=== PATIENT | female | born 1995 | race African-American/Black ===

== ENCOUNTER 2020-01-26 16:44 | Emergency (ER) | payer BC, SELFPAY ==
--- NOTE | ~2020-01-26 | CT_ITS ---
EXAMINATION: CT abdomen pelvis w con INDICATION: Left lower quadrant pain TECHNIQUE: Computed tomographic images of the abdomen and pelvis were obtained after the administrati on of 100 cc of Omnipaque 350 intravenous contrast. The dose-length product (DLP) was 835.84 mGy-cm. Automated exposure control and iterative reconstruction technique were employed. COMPARISON: None available FINDINGS: Respiratory motion artifact limits evaluation of the lung bases which appear clear. The hea rt size is normal. Surgical changes in the stomach are likely related to gastric bypass. The liver, s pleen, pancreas, gallbladder, and adrenal glands are normal. The kidneys are unremarkable. A circumao rtic left renal vein is noted. No pathologically enlarged abdominal or pelvic lymph nodes are identif ied. The appendix is normal. There is no free intraperitoneal gas or evidence of bowel obstruction. T he visualized osseous structures are unremarkable. IMPRESSION: 1. No CT correlate for the patient's symptoms. Reviewed, dictated and finalized at location A.
[2020-01-26 17:27] VITALS: BP 146/100; PULSE 95; RESP 16; TEMP 36.8; O2SAT 100
[2020-01-26 17:41] LABS: Basophils Absolute Auto 0.1 K/mm3 (0.0-0.1); Eosinophils Percent Auto 0.8 % (0-4.4); Hematocrit 40.1 % (37.0-47.0); Hemoglobin 12.8 g/dL (12.0-15.0); Immature Granulocyte Absolute 0.01 K/mm3 (0.00-0.031); Immature Granulocyte Percent A 0.2 % (0-0.5); Lymphocytes Absolute Auto 2.61 K/mm3 (0.9-3.2); Lymphocytes Percent Auto 50.9 % (18.3-44.2); Mean Corpuscular HGB Conc 31.9 g/dl (32-36); Mean Corpuscular Hemoglobin 23.3 pg (26-34); Mean Platelet Volume 8.8 fl (7.4-10.4); Monocytes Absolute Auto 0.3 K/mm3 (0.1-0.6); Monocytes Percent Auto 6.6 % (2.6-8.5); Neutrophils Absolute Auto 2.1 K/mm3 (1.3-6.7); Neutrophils Percent Auto 40.5 % (45.5-73.1); Platelet Count Result 251 k/mm3 (150-375); Red Blood Count 5.49 M/mm3 (4.2-5.4); Red Cell Distribution Width 15.7 % (11.5-14.5); White Blood Count 5.1 K/mm3 (4.5-10.0)
[2020-01-26 17:55] LABS: Hypochromasia 1+ (NORMAL); Platelet Estimate Adequate (Adequate)
[2020-01-26 17:56] LABS: Anisocytosis 2+ (NORMAL)
[2020-01-26 17:57] LABS: Add Urine Microscopic? YES; Appearance Urine Clear (Clear); Bilirubin Urine Negative (Negative); Blood Urine Negative (Negative); Color Urine Yellow (Yellow); Glucose Urine UA Negative (Negative); Ketones Urine 1+ mg/dL (Negative); Leukocyte Esterase Ur Negative LEU/UL (Negative); Mucus Urine Heavy /lpf; Nitrate Urine Negative (Negative); Protein Urine 1+ mg/dL (Negative); RBC Urine 0-2 /hpf (0-2); Specific Grav Ur 1.023 (1.001-1.035); Squamous Epithelial Cell Urine Occasional /hpf (Few); WBC Urine 0-3 /hpf
[2020-01-26 17:58] LABS: Alanine Aminotransferase 58 U/L (4-35); Albumin Level 4.4 g/dL (3.5-5.1); Alkaline Phosphatase 100 U/L (38-126); Aspartate Amino Transferase 53 U/L (14-36); Bilirubin,Total 0.7 mg/dL (0.2-1.3); Blood Urea Nitrogen 5 mg/dL (7-17); Calcium 9.2 mg/dL (8.4-10.2); Carbon Dioxide 26 mmol/L (22-30); Chloride 103 mmol/L (98-107); Estimated CRCL calculation 113 ml/min; Estimated Glomerular Filt Rate > 60; Glucose 86 mg/dL (65-105); Lipase 158 U/L (23-300); Potassium 4.1 mmol/L (3.4-5.0); Sodium 138 mmol/L (137-145)
--- NOTE | 2020-01-26 19:43 | ED.GENADULT ---
HPI - General Adult General Chief complaint: Nausea/Vomiting/Diarrhea Stated complaint: VOMITING, MCMILLAN, DEHYDRATION, ABD PAIN Time Seen by Provider: 01/26/20 19:42 Source: patient Mode of arrival: ambulatory Limitations: no limitations History of Present Illness HPI narrative: 24-year-old female patient presents to the emergency department with complaints of nausea, vomiting, diarrhea and abdominal pain that started last night. Patient states that she has history of gastric bypass sleeve in 2017. Patient states that she was on Saxenda for appetite suppressant that was prescribed by her doctor and she went off of it for about a week and recently got her prescription refilled. Patient states that she started taking it last night and then developed nausea, vomiting, diarrhea and some left lower abdominal pain. Patient denies . Patient states her last period was January 15. Patient denies any fevers that she is aware of. Patient states that she lives alone and not currently working. Patient states she has not been around anybody that is sick that she is aware of. Patient states that she last vomited about 5 minutes ago and has not been able to keep anything down today. Related Data Allergies Allergy/AdvReac Type Severity Reaction Status Date / Time No Known Allergies Allergy Verified 01/26/20 19:58 Review of Systems Review of Systems: Narrative: CONSTITUTIONAL: Denies fever, chills, or sweats. EYES: Denies visual changes, redness, or discharge. ENT: Denies rhinorrhea, congestion, sore throat, or otalgia. CARDIOVASCULAR: Denies chest pain, palpitations, or edema. RESPIRATORY: Denies cough or dyspnea. GASTROINTESTINAL: Positive abdominal pain, nausea, vomiting, and diarrhea. GENITOURINARY: Denies dysuria or hematuria. SKIN: Denies rash or itching. MUSCULOSKELETAL: Denies back pain, joint pain, or myalgia. NEUROLOGIC: Denies headache, numbness, or weakness. PSYCHIATRIC: Denies anxiety or depression. [facility] Surgical History Surgical History (Updated 01/26/20 @ 19:59 by MARSHA Adames) H/O gastric bypass 2017 Comments At the time of my signature I agree with nursing past medical history, surgical, social, and family history. There is no relevant family history pertinent to the presenting complaint. Exam Narrative: Exam Narrative: GENERAL: Well-appearing, well-nourished, and in no acute distress. HEAD: Normocephalic, atraumatic. EYES: PERRLA and EOMI. ENT: Nares clear, no rhinorrhea or epistaxis. Mucous membranes moist. NECK: Supple. No lymphadenopathy CHEST: Clear to auscultation. No respiratory distress. HEART: Regular rate and rhythm. No murmur heard. Normal peripheral pulses. ABDOMEN: Soft, flat, nondistended. No guarding, rebound tenderness, or rigid. Patient has tenderness to the left lower quadrant on palpation. No pulsatilla masses. Bowel sounds present in all four quadrants. No organomegaly. Negative Wetzel?s sign. No periumbicial tenderness. No Supra public tenderness or distension. Good femoral pulses bilaterally. No hernia noted. No scars or surface trauma. EXTREMITIES: Normal range of motion. No edema. SKIN: Warm, dry, no rash. NEURO: No focal deficits. Alert and oriented x3. Course Reevaluation(s) Reevaluation #1: Reevaluated patient after her labs and CT abdomen had resulted. Patient states she is feeling much better no longer has any pain and no nausea or vomiting. Discussed with her that there is no evidence of any acute issues to her CT. Discussed with her that her labs overall look well as well as her urine. Discussed with her that this could be some type of little virus that is causing her symptoms or possibly side effects of her medication. Discussed with patient daughter plan of care is to discharge her home with Zofran, Pepcid and dicyclomine. Discussed with patient if she continues to have issues with the nausea vomiting and diarrhea she will need to follow-up with her primary doctor. Patient
--- NOTE | 2020-01-26 19:54 | ECG_ITS ---
Measurements Intervals [place] Rate: 108 P: 53 WI: 169 QRS: 48 QRSD: 79 T: 24 QT: 331 QTc: 445 Interpretive Statements SINUS TACHYCARDIA BORDERLINE T WAVE ABNORMALITY- ANT/INF LEADS BASELINE ARTIFACT- I, III ABNORMAL ECG Electronically Signed On 01-27-2020 6:50:47 CDT by Joce Soto D.O.
[2020-01-26] MEDS: SODIUM CHLORIDE 0.9% IV 1,000 ML 999 ML IV CONT (20:00)
[2020-01-26] MEDS: ONDANSETRON INJ 4 MG/2 ML VIAL IV PUSH (20:00)
[2020-01-26 20:06] VITALS: BP 152/89; PULSE 98; RESP 14; TEMP 37.2; O2SAT 100
[2020-01-26 20:35] VITALS: TEMP 37.2
[2020-01-26 21:57] VITALS: BP 147/92; PULSE 93; RESP 14; TEMP 36.9; O2SAT 99
== END 2020-01-26 21:59 | disposition home or self-care (01) ==
PROVIDERS: Emergency Medicine; Emergency Provider Nurse Practitioner Family
DX: K52.9 Noninfective gastroenteritis and colitis, unspecified (principal); Z98.84 Bariatric surgery status; R00.0 Tachycardia, unspecified; R94.31 Abnormal electrocardiogram [ECG] [EKG]; R03.0 Elevated blood-pressure reading, without diagnosis of hypertension
CPT/HCPCS: 36415; 74177; 80053; 81001; 81025; 83690; 85025; 93005; 96361; 96374; 96375; 99284; J0131; J2405; J7030; Q9967

== ENCOUNTER 2020-01-27 16:10 | Emergency (ER) | payer BC, SELFPAY ==
[2020-01-27 16:19] VITALS: BP 149/91; PULSE 99; RESP 19; TEMP 36.2; O2SAT 99
[2020-01-27] MEDS: SODIUM CHLORIDE 0.9% IV 1,000 ML 999 ML IV CONT (17:40)
[2020-01-27] MEDS: ONDANSETRON INJ 4 MG/2 ML VIAL IV PUSH (17:42)
[2020-01-27] MEDS: FAMOTIDINE 20 MG/2 ML VIAL IV PUSH (17:42)
--- NOTE | 2020-01-27 17:42 | ED.NAVMDI ---
HPI - Nausea/Vomiting/Diarrhea General Chief complaint: Nausea/Vomiting/Diarrhea <Prashanth Jackson PA-C - Last Filed: 01/27/20 18:40> Stated complaint: n/v, headache <Prashanth Jackson PA-C - Last Filed: 01/27/20 18:40> Time Seen by Provider: 01/27/20 16:56 <Prashanth Jackson PA-C - Last Filed: 01/27/20 18:40> Source: patient and old records reviewed <Prashanth Jackson PA-C - Last Filed: 01/27/20 18:40> Mode of arrival: ambulatory <Prashanth Jackson PA-C - Last Filed: 01/27/20 18:40> Limitations: no limitations <Prashanth Jackson PA-C - Last Filed: 01/27/20 18:40> History of Present Illness HPI Narrative: Patient is a 24-year-old female who presents for concern for dehydration patient was seen yesterday for nausea vomiting diarrhea notes that she has not filled the medications that were prescribed to her continues to have some loose stools but notes that her nausea vomiting abdominal pain have improved patient on arrival is in the room in no distress notes some minimal discomfort in the frontal forehead denies fever chills nausea vomiting <Prashanth Jackson PA-C - Last Filed: 01/27/20 18:40> Related Data Allergies/Adverse reactions: Allergies Allergy/AdvReac Type Severity Reaction Status Date / Time No Known Allergies Allergy Verified 01/26/20 19:58 <Prashanth Jackson PA-C - Last Filed: 01/27/20 18:40> Review of Systems Review of Systems: All systems reviewed & are unremarkable except as noted in HPI and below <Prashanth Jackson PA-C - Last Filed: 01/27/20 18:40> [facility] Surgical History Surgical History: Surgical History H/O gastric bypass 2017 <AVELINA Steward Last Filed: 01/27/20 18:40> Social History Social History: Social History Gender identity (if verbalized by the patient): Female <AVELINA Steward Last Filed: 01/27/20 18:40> Exam Narrative: Exam Narrative: GENERAL: Well-appearing, well-nourished, and in no acute distress. HEAD: Normocephalic, atraumatic. EYES: PERRLA and EOMI. ENT: Nares clear, no rhinorrhea or epistaxis. Mucous membranes moist. CHEST: Clear to auscultation. No respiratory distress. No wheezes rales or rhonchi HEART: Regular rate and rhythm. No murmur heard. Normal peripheral pulses. ABDOMEN: Soft, nontender, nondistended EXTREMITIES: Normal range of motion. No edema. SKIN: Warm, dry, no rash. NEURO: No focal deficits. Alert and oriented x3. Cranial nerves II through XII grossly intact PSYCH: Normal mood and affect. <AVELINA Steward Last Filed: 01/27/20 18:40> Course Course Emergency Course: Patient in the room in no distress aware of case findings treatment plan and diagnosis agreeing to follow-up as directed no high risk changes in the blood work was hydrated in the emergency department and this felt appropriate for outpatient reevaluation provided with reasons to return <Prashanth Jackson PA-C - Last Filed: 01/27/20 18:40> Vital Signs Vital signs: Vital Signs Temperature 97.2 F L 01/27/20 16:19 Pulse Rate 99 01/27/20 16:19 Respiratory Rate 01/27/20 16:19 Blood Pressure 149/91 H 01/27/20 16:19 Pulse Oximetry 99 01/27/20 16:19 Temperature 97.2 F L 01/27/20 16:19 Pulse Rate 88 01/27/20 19:22 Respiratory Rate 01/27/20 19:22 Blood Pressure 162/84 H 01/27/20 19:22 Pulse Oximetry 100 01/27/20 19:22 <AVELINA Steward Last Filed: 01/27/20 18:40> Vital Signs Temperature 97.2 F L 01/27/20 16:19 Pulse Rate 99 01/27/20 16:19 Respiratory Rate 01/27/20 16:19 Blood Pressure 149/91 H 01/27/20 16:19 Pulse Oximetry 99 01/27/20 16:19 Temperature 97.2 F L 01/27/20 16:19 Pulse Rate 88 01/27/20 19:22 Respiratory Rate 20 01/27/20 19:22 Blood Pressure 162/84 H 01/27/20 19:22 Pulse Oximetry 10
[2020-01-27 17:43] LABS: Hematocrit 39.1 % (37.0-47.0); Hemoglobin 12.2 g/dL (12.0-15.0); Immature Platelet Fraction Pct 1.2 % (0.9-11.2); Mean Corpuscular HGB Conc 31.2 g/dl (32-36); Mean Corpuscular Hemoglobin 23.3 pg (26-34); Mean Corpuscular Volume 74.8 fl (80-100); Mean Platelet Volume 9.2 fl (7.4-10.4); Platelet Count Result 244 k/mm3 (150-375); Red Blood Count 5.23 M/mm3 (4.2-5.4); Red Cell Distribution Width 15.8 % (11.5-14.5); White Blood Count 5.3 K/mm3 (4.5-10.0)
[2020-01-27 17:53] LABS: Alanine Aminotransferase 75 U/L (4-35); Albumin Level 4.1 g/dL (3.5-5.1); Alkaline Phosphatase 92 U/L (38-126); Aspartate Amino Transferase 78 U/L (14-36); Bilirubin,Total 0.7 mg/dL (0.2-1.3); Blood Urea Nitrogen 5 mg/dL (7-17); Calcium 8.5 mg/dL (8.4-10.2); Carbon Dioxide 24 mmol/L (22-30); Chloride 103 mmol/L (98-107); Estimated CRCL calculation 130 ml/min; Estimated Glomerular Filt Rate > 60; Glucose 74 mg/dL (65-105); Lipase 141 U/L (23-300); Potassium 3.6 mmol/L (3.4-5.0); Sodium 136 mmol/L (137-145)
[2020-01-27 18:01] LABS: Atypical Lymphocytes Present; Lymphocytes Absolute Manual 3.28 K/mm3 (1.1-4.5); Lymphocytes Percent Manual 62 % (18-44); Monocytes Absolute Manual 0.37 K/mm3 (0.1-0.90); Monocytes Percent Manual 7 % (3-9); Neutrophils Percent Manual 31 % (46-73); Platelet Estimate Adequate (Adequate); Total Cells Counted 100
[2020-01-27 18:15] VITALS: BP 127/81; PULSE 82; RESP 13; O2SAT 97
[2020-01-27 19:22] VITALS: BP 162/84; PULSE 88; RESP 20; O2SAT 100
== END 2020-01-27 19:24 | disposition home or self-care (01) ==
PROVIDERS: Emergency Medicine Emergency Medical Services; Emergency Provider General Practice
DX: R10.9 Unspecified abdominal pain (principal)
CPT/HCPCS: 36415; 80053; 83690; 85025; 85055; 96365; 96375; 99284; J0131; J2405; J7030

== ENCOUNTER → 2020-09-25 11:29 | Outpatient (CLI) | payer BC, SELFPAY ==
--- NOTE | ~2020-09-25 | US_ITS ---
EXAMINATION: US transvaginal DATE: 09/25/2020 11:59 INDICATION: Menorrhagia TECHNIQUE: Multiple endovaginal sonographic images of the pelvis were obtained. COMPARISON: None. FINDINGS: The uterus measures 5.3 x 4 x 3.8 cm. The endometrial complex measures 6 mm. There is a tin y volume of fluid in the endometrial canal. The right ovary measures 1.5 x 2.3 x 1.3 cm. The left ova ry measures 2.7 x 1.6 x 2.3 cm. There is normal vascular flow in the ovaries. There is no free fluid in the pelvis. IMPRESSION: 1. No sonographic correlate for the patient's symptoms. Trace amount of fluid in the endometrial meseret l which is likely physiologic assuming the patient is not . Reviewed, dictated and finalized at location A. AUDIT MANAGER IMPRESSION: 1. No sonographic correlate for the patient's symptoms. Trace amount of fluid i n the endometrial canal which is likely physiologic assuming the patient is not .
== END ==
PROVIDERS: Visit Provider Nurse Practitioner
DX: N93.8 Other specified abnormal uterine and vaginal bleeding (principal)
CPT/HCPCS: 76830

== ENCOUNTER 2021-03-16 11:28 | Emergency (ER) | payer BC, SELFPAY ==
--- NOTE | ~2021-03-16 | XR_ITS ---
EXAMINATION: XR chest 2V DATE: 03/16/2021 12:13 INDICATION: Chest tightness. TECHNIQUE: Frontal and lateral views of the chest were obtained. COMPARISON: Chest 2 views 05/27/2014, CT abdomen and pelvis 01/26/2020 FINDINGS: The chest demonstrates clear lungs without pneumonia, pleural effusion, or pneumothorax. Th e heart size is normal. IMPRESSION: 1. No acute cardiopulmonary disease. Reviewed, dictated and finalized at location A.
[2021-03-16 11:32] VITALS: BP 144/106; PULSE 78; RESP 18; TEMP 36.7; O2SAT 100
--- NOTE | 2021-03-16 11:34 | ECG_ITS ---
Measurements Intervals [place] Rate: 76 P: 38 SD: 165 QRS: 46 QRSD: 92 T: 30 QT: 373 QTc: 421 Interpretive Statements SINUS RHYTHM NORMAL ECG Electronically Signed On 03-16-2021 11:39:56 CDT by Joce Soto D.O.
[2021-03-16 11:54] LABS: Basophils Absolute Auto 0.1 K/mm3 (0.0-0.1); Eosinophils Absolute Auto 0.1 K/mm3 (0-0.3); Eosinophils Percent Auto 1.4 % (0-4.4); Hematocrit 35.1 % (37.0-47.0); Hemoglobin 10.8 g/dL (12.0-15.0); Immature Granulocyte Absolute 0.01 K/mm3 (0.00-0.031); Immature Granulocyte Percent A 0.2 % (0-0.5); Lymphocytes Absolute Auto 2.26 K/mm3 (0.9-3.2); Lymphocytes Percent Auto 45.9 % (18.3-44.2); Mean Corpuscular HGB Conc 30.8 g/dl (32-36); Mean Corpuscular Hemoglobin 22.2 pg (26-34); Mean Corpuscular Volume 72.1 fl (80-100); Mean Platelet Volume 8.9 fl (7.4-10.4); Monocytes Absolute Auto 0.5 K/mm3 (0.1-0.6); Monocytes Percent Auto 9.8 % (2.6-8.5); Neutrophils Absolute Auto 2.1 K/mm3 (1.3-6.7); Neutrophils Percent Auto 41.7 % (45.5-73.1); Platelet Count Result 295 k/mm3 (150-375); Red Blood Count 4.87 M/mm3 (4.2-5.4); Red Cell Distribution Width 19.1 % (11.5-14.5); White Blood Count 4.9 K/mm3 (4.5-10.0)
[2021-03-16 12:03] LABS: Prothrombin Time 13.2 Seconds (11.1-14.7)
[2021-03-16 12:04] LABS: Partial Thromboplastin Time 25.9 SECONDS (22.3-36.8)
[2021-03-16 12:06] LABS: Anion Gap 8 mmol/L (8-16); Blood Urea Nitrogen 7 mg/dL (7-17); Calcium 9.3 mg/dL (8.4-10.2); Carbon Dioxide 26 mmol/L (22-30); Chloride 108 mmol/L (98-107); Estimated CRCL calculation 113 ml/min; Estimated Glomerular Filt Rate > 60; Glucose 89 mg/dL (65-110); Potassium 3.7 mmol/L (3.4-5.0); Sodium 142 mmol/L (137-145)
[2021-03-16 12:18] LABS: Troponin I < 0.012 ng/mL (0.000-0.034)
--- NOTE | 2021-03-16 13:57 | PC.NURSE ---
called heme, mariela, added on [id number]
[2021-03-16 14:02] LABS: D Dimer 0.27 ug/mL (<0.48)
[2021-03-16] MEDS: KETOROLAC 30 MG/ML VIAL (*BKC) IV PUSH (14:13)
[2021-03-16] MEDS: SODIUM CHLORIDE 0.9% IV 1,000 ML 999 ML IV CONT (14:13)
[2021-03-16 14:51] VITALS: BP 148/98; PULSE 80; RESP 20; O2SAT 100
[2021-03-16 15:19] LABS: Add Urine Microscopic? YES; Appearance Urine Cloudy (Clear); Bacteria Urine Trace /hpf; Bilirubin Urine Negative (Negative); Blood Urine Negative (Negative); Color Urine Amber (Yellow); Glucose Urine UA Negative (Negative); Ketones Urine Negative (Negative); Leukocyte Esterase Ur Trace LEU/UL (Negative); Mucus Urine Rare /lpf; Nitrate Urine Negative (Negative); Protein Urine 1+ mg/dL (Negative); RBC Urine 0-2 /hpf (0-2); Specific Grav Ur 1.023 (1.001-1.035); Squamous Epithelial Cell Urine Rare /hpf (Few); WBC Urine 0-3 /hpf
[2021-03-16 15:42] VITALS: BP 152/92; PULSE 84; RESP 22; O2SAT 100
--- NOTE | 2021-03-16 16:00 | ED.CHESTPAIN ---
HPI - Chest Pain General Chief Complaint: Chest Pain Stated Complaint: chest discomfort Time Seen by Provider: 03/16/21 13:33 Source: RN notes reviewed History of Present Illness HPI narrative: Patient presents emergency department from home for chest pain. Patient states pain began yesterday pain is located on the the left lateral chest and arm pain increased with deep inspiration and raising of the left arm states is described as sharp and stabbing in nature pain does not resolve but does improve with rest patient states that she has mild shortness of breath with that she states she is been under a large amount of stress as her fianc? recently a week and half ago and her grandmother is also severely ill she states that she has been feeling very anxious she denies any fevers or chills abdominal pain nausea vomiting she does note some burning with urination Related Data Allergies Allergy/AdvReac Type Severity Reaction Status Date / Time No Known Allergies Allergy Verified 03/16/21 13:53 Review of Systems Review of Systems: Gen.: Denies fevers or chills Eyes: Denies eye pain or visual change ENT: Denies congestion Respiratory: Reports shortness of breath CV: See HPI GI: Denies abdominal pain nausea, emesis or diarrhea reports burning with urination Musculoskeletal: Denies back pain or muscle pain Neuro: Denies numbness, tingling, weakness or focal weakness Skin: Denies rash Except as documented, all other systems reviewed and negative [facility] Past Medical History Medical History (Updated 03/16/21 @ 16:03 by Wilfrid Lutz DO) Patient denies significant medical history Surgical History Surgical History H/O gastric bypass 2017 Social History Social History (Updated 03/16/21 @ 16:02 by Wilfrid Lutz DO) Smoking status: Never smoker Gender identity (if verbalized by the patient): Female Exam Narrative: APPEARANCE: No acute distress, nontoxic, resting in bed EYES: EOMI HEENT: Normocephalic, atraumatic, OMM RESPIRATORY: No respiratory distress Clear to auscultation bilaterally with no rhonchi wheezing or rales. CARDIOVASCULAR: Regular rate and rhythm without murmurs rubs or gallops. Chest: Tender to palpation of the left anterior lateral chest wall pain increased with deep inspiration and flexion abduction of the left arm greater than 45 degrees ABDOMINAL: Soft, nontender, nondistended, no rebound or guarding MUSCULOSKELETAl: Moves all extremities. No clubbing, cyanosis or edema. NEURO: Awake and alert. Following commands, speech normal, no focal deficits SKIN:: Warm, dry. No rashes lesions or abrasions PSYCHIATRIC: Normal affect/mood, Course Course Emergency Course: Patient states pain is resolved with Toradol Discussed with patient results of workup and diagnosis. Discussed need for follow-up with primary care, proper use of medication, and reasons to return to the emergency department. Patient understands and agrees to current treatment plan Vital Signs Vital signs: Vital Signs Temperature 98.1 F 03/16/21 11:32 Pulse Rate 78 03/16/21 11:32 Respiratory Rate 18 03/16/21 11:32 Blood Pressure 144/106 H 03/16/21 11:32 Pulse Oximetry 100 03/16/21 11:32 Temperature 98.1 F 03/16/21 11:32 Pulse Rate 59 L 03/16/21 16:34 Respiratory Rate 12 03/16/21 16:34 Blood Pressure 137/100 H 03/16/21 16:34 Pulse Oximetry 100 03/16/21 16:34 MDM - Chest Pain MDM Narrative Medical decision making narrative: Patient's EKGs and labs are without significant high risk changes. Cardiac risk factors reviewed. Patient is felt likely low risk for ACS and reasonable for further risk stratification testing as an outpatient. Pain was not sudden or maximal in onset without tearing or ripping quality. No other signs of symptoms suggest aortic dissection. A low-risk Wells criteria is noted, PE is felt to be unlikely. No pneumonia seen
[2021-03-16 16:34] VITALS: BP 137/100; PULSE 59; RESP 12; O2SAT 100
[2021-03-16 17:21] LABS: Troponin I 0.016 ng/mL (0.000-0.034)
[2021-03-16 17:45] VITALS: BP 152/92; PULSE 68; RESP 15; O2SAT 95
== END 2021-03-16 17:46 | disposition home or self-care (01) ==
PROVIDERS: Emergency Medicine; Emergency Provider Emergency Medicine
DX: R07.89 Other chest pain (principal); F41.9 Anxiety disorder, unspecified; Z98.84 Bariatric surgery status
CPT/HCPCS: 36415; 71046; 80048; 81001; 81025; 84484; 85025; 85380; 85610; 85730; 93005; 96361; 96374; 99284; J1885; J7030